=== PATIENT | male | born 1980 | race African-American/Black ===

== ENCOUNTER 2021-10-12 09:08 | Inpatient (IN) | payer OTHER ==
[2021-10-12] MEDS ORDERED: ACETAMINOPHEN 325 MG TABLET (FP) PO PRN (10:49)
[2021-10-12] MEDS ORDERED: P-EPHED 60MG/TRIPROLIDI 2.5MG TABLET PO PRN (10:49)
[2021-10-12] MEDS ORDERED: IBUPROFEN 400 MG TABLET (FP) PO PRN (10:49)
[2021-10-12] MEDS ORDERED: NICOTINE 10 MG CARTRIDGE (INHALER) IH PRN (10:49)
[2021-10-12] MEDS ORDERED: MAGNESIUM CITRATE 300 ML BOTTLE PO PRN (10:49)
[2021-10-12] MEDS ORDERED: LOPERAMIDE HCL 2 MG CAPSULE PO PRN (10:49)
[2021-10-12] MEDS ORDERED: guaiFENesin 200 MG/10 ML 10 ML UNIT-DOSE CUPS PO PRN (10:49)
[2021-10-12] MEDS ORDERED: MAGNESIUM HYDROX 2400MG/30ML ORAL SUSPENSION 30 ML CUP PO PRN (10:49)
[2021-10-12] MEDS ORDERED: MAG HYDROX/AL HYDROX/SIMETH 30 ML UNIT-DOSE CUP PO PRN (10:49)
[2021-10-12 11:15] VITALS: BMI 26.4
[2021-10-12 16:23] LABS: HEMATOCRIT 41.8 % (35.4-49); HEMOGLOBIN 13.8 GM/dL (11.7-16.9); MCH 31.9 pg (25.7-33.7); MEAN CELL VOLUME 96.8 fl (80-96); PLATELET COUNT 223 10^3/uL (134-434); RBC 4.31 M/mm3 (4.00-5.60); RDW 12.7 % (11.9-15.9); WHITE BLOOD COUNT 8.6 K/mm3 (4.0-10.0)
[2021-10-12 16:24] LABS: CALCIUM 9.3 mg/dL (8.5-10.1)
[2021-10-12 16:25] LABS: BLOOD UREA NITROGEN 16.5 mg/dL (7-18)
[2021-10-12 16:28] LABS: CREATININE 1.3 mg/dL (0.55-1.3)
[2021-10-12 16:30] LABS: BILIRUBIN,TOTAL 0.4 mg/dL (0.2-1); TOT PROT 7.7 g/dl (6.4-8.2)
[2021-10-12] MEDS: NICOTINE 21 MG/24 HOURS TOPICAL PATCH TD SCH (18:39)
[2021-10-12] MEDS: NICOTINE 7 MG/24 HOURS TOPICAL PATCH TD SCH (18:39)
[2021-10-12] MEDS: hydrOXYzine PAMOATE 25 MG CAPSULE (FP) PO SCH ×3 (18:39→21:19)
[2021-10-12] MEDS ORDERED: ALBUTEROL SO4 HFA INHALER IH PRN (21:30)
[2021-10-12] MEDS ORDERED: MELATONIN 5 MG TABLETS PO SCH (22:00)
[2021-10-12] MEDS ORDERED: THIAMINE HCL 100 MG TABLET (FP) PO SCH (22:00)
[2021-10-13] MEDS: hydrOXYzine PAMOATE 25 MG CAPSULE (FP) PO SCH ×3 (06:48→14:50)
[2021-10-13] MEDS ORDERED: ALBUTEROL SO4 0.083% IH SOL 2.5 MG/3 ML VIAL.NEB. NEB PRN (08:36)
[2021-10-13 08:58] VITALS: BP 102/65; PULSE 66; TEMP 97.3
[2021-10-13] MEDS ORDERED: PRENATAL VITAMINS W/ FOLIC ACID TABLET (FP) PO SCH (10:00)
[2021-10-13] MEDS: NICOTINE 21 MG/24 HOURS TOPICAL PATCH TD SCH (10:40)
[2021-10-13] MEDS: NICOTINE 7 MG/24 HOURS TOPICAL PATCH TD SCH (10:40)
[2021-10-13 10:52] LABS: EPI CELLS 6 /uL (0-25.1); HYALINE CASTS 14 /uL (0-3.1); PH,URINE 5.5 (5.0-8.0); URINE APPEARANCE CLOUDY; URINE BACTERIA 177 /uL (0-1359); URINE BILIRUBIN NEGATIVE (NEGATIVE); URINE COLOR YELLOW; URINE GLUCOSE (UA) NEGATIVE (NEGATIVE); URINE KETONE TRACE (NEGATIVE); URINE LEUK ESTERASE 1+ (NEGATIVE); URINE NITRITE NEGATIVE (NEGATIVE); URINE PROTEIN NEGATIVE (NEGATIVE); URINE RBC 28 /uL (0-23.9); URINE UROBILINOGEN 0.2 mg/dL (0.2-1.0); URINE WBC 245 /uL (0-25.8)
[2021-10-13] MEDS ORDERED: BUDESONIDE/FORMETEROL FUMARATE 80/4.5 mcg INHALER IH SCH (14:30)
[2021-10-13] MEDS ORDERED: TUBERCULIN PPD 5 TU/0.1ML VIAL ID ONE (14:45)
[2021-10-13] MEDS ORDERED: hydrOXYzine PAMOATE 25 MG CAPSULE (FP) PO PRN (15:10)
[2021-10-14 01:12] LABS: HIV INTERPRETATION NEGATIVE (NEGATIVE)
[2021-10-14 13:23] LABS: SYPHILIS W/ RPR CONF NON-REACTIVE (NONREACTIVE)
== END 2021-10-13 15:25 | disposition left against medical advice (07) | DRG 770 ==
LOC: YASAS 09:08 → Y3N 17:57 → Y3E 18:21
PROVIDERS: ADMIT Allergy & Immunology; ATTEND Psychiatry & Neurology Pain Medicine
PROC: HZ42ZZZ Group Counseling for Substance Abuse Treatment, Cognitive-Behavioral (ICD-10-PCS; principal; 2021-10-12)
DX: F14.20 Cocaine dependence, uncomplicated (principal); F17.210 Nicotine dependence, cigarettes, uncomplicated; F31.9 Bipolar disorder, unspecified; F41.9 Anxiety disorder, unspecified; F32.A Depression, unspecified; J45.909 Unspecified asthma, uncomplicated; Z28.310 Unvaccinated for COVID-19; Z88.8 Allergy status to other drugs, medicaments and biological substances; Z91.013 Allergy to seafood
CPT/HCPCS: 36415; 80053; 81003; 85025; 85027; 86780; 86803; 87389; 93005; 93010; 94640; 99281-25; C9803-CS; U0003; U0005

== ENCOUNTER 2022-04-06 07:48 | Emergency (ER) | payer OTHER ==
[2022-04-06 08:07] VITALS: RESP 18; BMI 25.1
[2022-04-06] MEDS ORDERED: SODIUM CHLORIDE 0.9% 1000 ML INFUS.BAG IV ONE (08:21)
[2022-04-06] MEDS ORDERED: DEXAMETHASONE SOD PHOSPHATE 10 MG/1 ML VIAL IVPUSH ONE (08:21)
[2022-04-06] MEDS ORDERED: ACETAMINOPHEN 1000 MG/100 ML BAG IVPB ONE (08:22)
[2022-04-06] MEDS ORDERED: ONDANSETRON 4 MG/2 ML VIAL IVPUSH ONE (08:22)
[2022-04-06] MEDS ORDERED: ONDANSETRON 4 MG/2 ML VIAL ONE (08:32)
[2022-04-06] MEDS ORDERED: ALBUTEROL SO4 2.5/IPRATROPIUM 0.5 INH SOL 3 ML VIAL.NEB. NEB ONE (08:32)
[2022-04-06] MEDS ORDERED: ACETAMINOPHEN INJECTION 100 ML IVPB ONE (08:32)
[2022-04-06] MEDS ORDERED: DEXAMETHASONE SOD PHOSPHATE 10 MG/1 ML VIAL ONE (08:58)
[2022-04-06] MEDS: ALBUTEROL SO4 2.5/IPRATROPIUM 0.5 INH SOL 3 ML VIAL.NEB. NEB SCH ×4 (09:00→09:11)
[2022-04-06 09:43] LABS: HEMATOCRIT 42.6 % (35.4-49); MCH 31.6 pg (25.7-33.7); MCHC 32.9 g/dl (32.0-35.9); MEAN PLT VOLUME 9.8 fl (7.5-11.1); PLATELET COUNT 212 10^3/uL (134-434); RBC 4.44 M/mm3 (4.00-5.60); RDW 12.8 % (11.9-15.9)
[2022-04-06 10:15] LABS: ALBUMIN 3.3 g/dl (3.4-5.0); ANISOCYTOSIS 0; CALCIUM 8.9 mg/dL (8.5-10.1); MACROCYTOSIS 0
[2022-04-06 10:16] LABS: BLOOD UREA NITROGEN 15.6 mg/dL (7-18)
[2022-04-06 10:19] LABS: CREATININE 1.4 mg/dL (0.55-1.3)
[2022-04-06 10:20] LABS: BILIRUBIN,TOTAL 0.8 mg/dL (0.2-1)
[2022-04-06 11:20] VITALS: BP 110/62; PULSE 92; TEMP 98.8
== END 2022-04-06 13:22 | disposition home or self-care (01) ==
LOC: JER 07:48
PROC: 3E033GC Introduction of Other Therapeutic Substance into Peripheral Vein, Percutaneous Approach (ICD-10-PCS; principal; 2022-04-06)
PROC: 3E0F7GC Introduction of Other Therapeutic Substance into Respiratory Tract, Via Natural or Artificial Opening (ICD-10-PCS; 2022-04-06)
DX: J09.X2 Influenza due to identified novel influenza A virus with other respiratory manifestations (principal)
CPT/HCPCS: 0241U-QW; 36415; 80053; 85025; 99285-25; J1100